=== PATIENT | female | born 1990 | race Caucasian/White ===

== ENCOUNTER 2020-02-11 11:13 | Day surgery (SDC) | payer OTHER ==
[~2020-02-11] VITALS: Ht 157.5 cm; Wt 52.7 kg
[2020-02-11 11:47] VITALS: BP 112/81
[2020-02-11] MEDS ORDERED: LACTATED RINGERS 1,000 ML IV SCH (11:51)
[2020-02-11] MEDS ORDERED: NORCO PO (11:53)
[2020-02-11 12:07] LABS: HCG UR SG 1.028 (1.003-1.030)
[2020-02-11] MEDS ORDERED: MIDAZOLAM 1 MG/ML, 2ML ONE (12:24)
[2020-02-11] MEDS ORDERED: FENTANYL PF 250 MCG/5ML ONE (12:24)
[2020-02-11] MEDS ORDERED: EPINEPHRINE 1 MG/ML, 1ML ONE (13:00)
[2020-02-11] MEDS ORDERED: PROMETHAZINE 25 MG/ML, 1ML IV PRN (13:00)
[2020-02-11] MEDS ORDERED: hydrALAzine 20 MG/ML, 1ML IV PRN (13:00)
[2020-02-11] MEDS ORDERED: BUPIVACAINE/PF 0.25% ONE (13:00)
[2020-02-11] MEDS ORDERED: OXYcodone 5 MG/5 ML ORAL.SOL UDC PO PRN (13:00)
[2020-02-11] MEDS ORDERED: LABETALOL 5MG/ML, 20ML IV PRN (13:00)
[2020-02-11] MEDS ORDERED: MEPERIDINE/PF 25MG/ML,1ML IVPush PRN (13:00)
[2020-02-11] MEDS ORDERED: ONDANSETRON 2MG/ML, 2ML IV PRN (13:00)
[2020-02-11] MEDS ORDERED: ACETAMINOPHEN 325 MG TABLET PO PRN (13:00)
[2020-02-11] MEDS ORDERED: HYDROmorphone 2 MG/ML, 1ML IVPush PRN (13:00)
[2020-02-11] MEDS ORDERED: DEXAMETHASONE 4 MG/ML, 1ML ONE (13:21)
[2020-02-11] MEDS ORDERED: KETOROLAC 30 MG/1 ML ONE (13:21)
[2020-02-11] MEDS ORDERED: PROPOFOL 10 MG/ML, 20ML ONE (13:30)
[2020-02-11] MEDS ORDERED: ONDANSETRON 2MG/ML, 2ML ONE (13:30)
[2020-02-11] MEDS ORDERED: SILVER NITRATE STICK TP ONE (14:08)
[2020-02-11] MEDS ORDERED: FENTANYL PF 100 MCG/2ML ONE (14:10)
[2020-02-11] MEDS ORDERED: OXYcodone 5 MG/5 ML ORAL.SOL UDC ONE (14:10)
[2020-02-11] MEDS: FENTANYL PF 100 MCG/2ML IV PRN ×3 (14:12→14:25)
[2020-02-11] MEDS ORDERED: IBUPROFEN 600 MG TABLET PO SCH (15:50)
[2020-02-11] MEDS ORDERED: IBUPROFEN 600 MG TABLET ONE (15:51)
== END 2020-02-11 16:15 | disposition home or self-care (01) ==
LOC: OUT 11:13
PROVIDERS: ATTEND Obstetrics & Gynecology
DX: N92.0 Excessive and frequent menstruation with regular cycle (principal); N94.6 Dysmenorrhea, unspecified; N84.0 Polyp of corpus uteri; G43.909 Migraine, unspecified, not intractable, without status migrainosus; M19.90 Unspecified osteoarthritis, unspecified site; Z79.899 Other long term (current) drug therapy; Z98.51 Tubal ligation status; Z98.890 Other specified postprocedural states
CPT/HCPCS: 58120; 58563; 81025; 88305; J0171; J1100; J1885; J2250; J2405; J2704; J3010; J7120; J3490